=== PATIENT | male | born 1985 | race Caucasian/White ===

== ENCOUNTER → 2023-06-16 05:54 | Outpatient (REF) | payer MEDICARE, SELFPAY | LOC: MRI 05:54 | PROVIDERS: ATTENDING PHYSICIAN Family Medicine | DX: G89.29 Other chronic pain (principal); M54.12 Radiculopathy, cervical region; G62.9 Polyneuropathy, unspecified | CPT/HCPCS: 72141 ==

== ENCOUNTER → 2025-01-13 07:22 | Outpatient (REF) | payer OTHER, SELFPAY | LOC: MRI 07:22 | PROVIDERS: ATTENDING PHYSICIAN Family Medicine | DX: G89.29 Other chronic pain (principal); M54.12 Radiculopathy, cervical region | CPT/HCPCS: 72141 ==